=== PATIENT | female | born 1970 | race Caucasian/White ===

== ENCOUNTER 2023-11-15 08:52 | Day surgery (SDC) | payer OTHER ==
[2023-11-15] MEDS ORDERED: Lactated Ringers 1,000 ML IV ONE (09:25)
[2023-11-15] MEDS: Lactated Ringers 1,000 ML IV SCH ×2 (09:28→09:57)
[2023-11-15 09:40] LABS: Absolute Neutrophil Ct (ANC) 1.83 x10^3/uL (1.56-6.13); BASOPHIL % 0.8 % (0.1-1.2); Basophil (Absolute #) 0.03 x10^3/uL (0.01-0.08); Eosinophil % 8.3 % (0.7-5.8); Eosinophil (Absolute #) 0.31 x10^3/uL (0.04-0.36); Hematocrit 40.6 % (34.1-44.9); Hemoglobin 13.8 g/dL (11.2-15.7); IMMATURE GRAN # 0.01 x10^3u/L (0.001-0.031); IMMATURE GRAN % 0.3 % (0.001-0.429); Lymphocyte (Absolute #) 1.29 x10^3/uL (1.18-3.74); Lymphocytes % 34.4 % (19.3-51.7); Mean Cell Volume 88.1 fL (79.4-94.8); Mean Corpuscular Hemoglobin 29.9 pg (25.6-32.2); Mean Platelet Volume 9.7 fL (9.4-12.3); Monocyte (Absolute #) 0.28 x10^3/uL (0.24-0.86); Monocytes % 7.5 % (4.7-12.5); Neutrophil % 48.7 % (34.0-71.1); Platelet Count 188 x10^3/uL (182-369); Red Blood Count 4.61 x10^6/uL (3.93-5.22); Red Cell Distribution Width 11.8 % (11.7-14.4); White Blood Count 3.8 x10^3/uL (3.98-10.04)
[2023-11-15] MEDS ORDERED: Zofran 4 MG/2 ML VIAL ONE (09:50)
[2023-11-15] MEDS: Zofran 4 MG/2 ML VIAL IV STA (09:52)
[2023-11-15 10:14] LABS: ISTAT CREA 0.8 mg/dL (0.6-1.3); ISTAT K 4.1 mmol/L (3.5-4.9); ISTAT iCA 1.21 mmol/L (1.12-1.32)
[2023-11-15] MEDS ORDERED: Versed 2 MG/2 ML Injection ONE (12:00)
[2023-11-15] MEDS ORDERED: DIPRIVAN 200 MG/20 ML IV ONE ×2 (12:00→12:14)
[2023-11-15 12:57] VITALS: BP 119/51; RESP 16
[2023-11-15 13:06] VITALS: PULSE 48; TEMP 96.8; O2SAT 98
--- NOTE | 2023-11-16 08:05 | OP ---
SURGERY DATE/TIME: 11/15/2023 1202 PREOPERATIVE DIAGNOSES: 1) History of Abel's. 2) Abnormal CT scan diverticulitis. 3) History of polyps. POSTOPERATIVE DIAGNOSES: 1) No Abel's. 2) Intact fundoplication. 3) Moderate gastritis. 4) Colon polyps. 5) Diverticulosis. 6) Mild tortuosity and stricture of sigmoid. PROCEDURES: 1) EGD with biopsy. 2) Colonoscopy with polypectomy. SURGEON: Curtis Hoang M.D. ANESTHESIA: IV anesthesia. CONDITION: Patient condition stable. COMPLICATIONS: None. SPECIMEN: As below. 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 Her symptoms were doing way better after that but would be due for Abel's surveillance. She also has history of abdominal pain, diverticulitis. CT scan confirms thickening in the sigmoid colon that required IV antibiotics and eventually improved. Her symptoms from that have finally returned to baseline. She is not having pain and still just has a little bit of crampy constipation pain that goes away after a bowel movement. Discussion had with the patient and elected to proceed with endoscopy. FINDINGS: Moderate gastritis, biopsy for Helicobacter pylori. Colonoscopy with fair preparation, 4 mm cecal polyp, diverticulosis of the sigmoid colon with mild tortuosity and narrowing. DESCRIPTION OF PROCEDURE: The patient is brought to the endoscopy suite. Routinely positioned and prepared. Timeout performed. Video gastroscope inserted through the mouth advanced to the third portion of the duodenum. The duodenum is normal in appearance. The fundus does have moderate gastritis with erythema friability. Biopsies taken of the gastritis area as well as the antrum for Helicobacter pylori both together. Retroflexion shows intact fundoplication. The gastroesophageal junction was totally normal. The esophagus is totally normal. There is absolutely no Abel's changes grossly. Distal esophagus biopsy is taken. The stomach is suctioned out. Scope is withdrawn. The external examination was normal. Digital rectal examination is normal. Colonoscope is then inserted and advanced to the terminal ileum. Also the appendiceal orifice identified. The terminal is normal in appearance. The preparation is A[place]ick fair preparation. On withdrawal during six minutes, there is a 4 mm cecal poly taken with hot snare. The cecum, transverse, descending totally normal. Sigmoid colon with moderate diverticulosis. There is just some tortuosity and mild narrowing at the distal sigmoid and the rectum is normal. Retroflexion normal. The patient tolerated the procedure well and is then taken to recovery in stable condition. RECOMMENDATIONS: Continue with proton pump inhibitor. Follow up in two to four weeks in office for pathology results and to determine her next colonoscopy. She does not have Abel's grossly but we will go over the path and if she needs any endoscopic surveillance for the upper.
== END 2023-11-15 13:10 | disposition home or self-care (01) ==
LOC: SDC 08:52
PROVIDERS: ATTEND Surgery
DX: Z09 Encounter for follow-up examination after completed treatment for conditions other than malignant neoplasm (principal); Z86.010 Personal history of colon polyps; Z87.19 Personal history of other diseases of the digestive system; R93.89 Abnormal findings on diagnostic imaging of other specified body structures; K29.70 Gastritis, unspecified, without bleeding; K57.30 Diverticulosis of large intestine without perforation or abscess without bleeding; K56.699 Other intestinal obstruction unspecified as to partial versus complete obstruction; D12.0 Benign neoplasm of cecum
CPT/HCPCS: 36415; 80047; 85025; 93005; J2250; J2405; J2704